=== PATIENT | female | born 1995 | race Caucasian/White ===

== ENCOUNTER 2022-05-11 13:32 | Outpatient (CLI) | payer OTHER | END 2022-05-11 14:34 | disposition home or self-care (01) | LOC: NST 13:32 | PROVIDERS: ATTEND Obstetrics & Gynecology Maternal & Fetal Medicine | DX: Z34.83 Encounter for supervision of other normal pregnancy, third trimester (principal) ==

== ENCOUNTER 2022-05-14 14:32 | Outpatient (CLI) | payer OTHER | END 2022-05-14 14:55 | disposition home or self-care (01) | LOC: NST 14:32 | PROVIDERS: ATTEND Obstetrics & Gynecology Gynecology | DX: Z34.83 Encounter for supervision of other normal pregnancy, third trimester (principal) ==

== ENCOUNTER 2022-05-16 09:38 | Inpatient (IN) | payer OTHER ==
[~2022-05-16] VITALS: Ht 124.5 cm; Wt 80.3 kg
[2022-05-16] MEDS ORDERED: PRENATA CHEWAB1 EACH PO (10:18)
[2022-05-16] MEDS ORDERED: STELARA90 MG/1 ML SUBCUTANEO (10:18)
[2022-05-19] MEDS ORDERED: KETO10TA2 PO (07:34)
[2022-05-19] MEDS ORDERED: OXYC1TAB9 PO (07:34)
== END 2022-05-19 10:58 | disposition home or self-care (01) | DRG 787 ==
LOC: LDR 09:38 → OB/GYN 12:56
PROVIDERS: ADMIT Obstetrics & Gynecology Maternal & Fetal Medicine; ATTEND Obstetrics & Gynecology Maternal & Fetal Medicine
PROC: 4A1HXCZ Monitoring of Products of Conception, Cardiac Rate, External Approach (ICD-10-PCS; 2022-05-16)
PROC: 10D00Z1 Extraction of Products of Conception, Low, Open Approach (ICD-10-PCS; principal; 2022-05-16 11:00)
DX: O99.62 Diseases of the digestive system complicating childbirth (principal); K50.913 Crohn's disease, unspecified, with fistula; K50.914 Crohn's disease, unspecified, with abscess; K92.89 Other specified diseases of the digestive system; Z3A.38 38 weeks gestation of pregnancy; Z37.0 Single live birth